=== PATIENT | male | born 1960 | race African-American/Black ===

== ENCOUNTER 2018-09-18 08:02 | Day surgery (SDC) | payer OTHER ==
[~2018-09-18 08:02] MED LIST: CARBACHOL 0.01% 1.5 ML OPH INJ; EPINEPHrine 1 MG INJ; TETRACAINE 0.5% 4 ML OPH; TOBRAMYCIN 0.3% 3.5 GM OPH OINT
[2018-09-18] MEDS: DICLOFENAC 0.1% 2.5 ML OPH OPER (09:22)
[2018-09-18] MEDS: TROPICAMIDE 1% 15 ML OPH OPER (09:24)
[2018-09-18] MEDS: PHENYLephrine 10% 5 ML OPH OPER (09:24)
[2018-09-18] MEDS: MOXIFLOXACIN 0.5% 3 ML OPH OPER (09:25)
[2018-09-18] MEDS ORDERED: ERYTHROMYCIN 1 GM OPH OINT OP (09:30)
[2018-09-18] MEDS: LIDOCAINE 4% (MPF) 5 ML INJ OPER (09:30)
[2018-09-18] MEDS ORDERED: CARBACHOL 0.01% 1.5 ML OPH INJ (10:23)
[2018-09-18] MEDS ORDERED: SODIUM HYALURONATE 14 MG/ML SYG (10:24)
[2018-09-18] MEDS ORDERED: TOBRAMYCIN 0.3% 3.5 GM OPH OINT (10:24)
[2018-09-18] MEDS ORDERED: EPINEPHrine 1 MG INJ (10:24)
[2018-09-18] MEDS ORDERED: FENTAnyl 50 MCG/ML VIAL ×2 (10:42→11:57)
[2018-09-18] MEDS ORDERED: MIDAZOLAM 1 MG/ML 2 ML INJ ×2 (10:42→11:57)
[2018-09-18] MEDS: LIDOCAINE 1.5%/EPI MPF (SDV) 30 ML VIAL INJ (10:50)
[2018-09-18] MEDS: TETRACAINE 0.5% 4 ML OPH OP (10:50)
[2018-09-18] MEDS ORDERED: HYDROmorphONE 2 MG/ML SYG (10:56)
[2018-09-18] MEDS ORDERED: FENTAnyl 50 MCG/ML VIAL IV (11:00)
[2018-09-18] MEDS ORDERED: DIPHENHYDRAMINE 50 MG INJ IV (11:00)
[2018-09-18] MEDS ORDERED: PROCHLORPERAZINE 10 MG INJ IV (11:00)
[2018-09-18] MEDS ORDERED: MEPERIDINE 25 MG INJ IV (11:00)
[2018-09-18] MEDS ORDERED: hydrALAzine 20 MG INJ IV (11:00)
[2018-09-18] MEDS ORDERED: HYDROmorphONE 1 MG/5 ML IV SYRINGE IV ×3 (11:00)
[2018-09-18] MEDS ORDERED: OXYCODONE/ACETAMINOPHEN (5/325) TAB PO (11:00)
[2018-09-18] MEDS ORDERED: LABETALOL HCL 20MG INJ IV (11:00)
[2018-09-18] MEDS: SODIUM HYALURONATE 14 MG/ML SYG IO (11:01)
[2018-09-18] MEDS: TOBRAMYCIN/DEXAMETH 3.5 GM OPH OINT RIGHT EYE (11:30)
[2018-09-18] MEDS: CARBACHOL 0.01% 1.5 ML OPH INJ RIGHT EYE (11:30)
[2018-09-18] MEDS: DEXAMETHASONE 4 MG/ML 1 ML INJ (11:33)
[2018-09-18] MEDS ORDERED: hydrALAzine 20 MG INJ (11:38)
[2018-09-18] MEDS: ACETAZOLAMIDE 250 MG TAB PO (11:51)
[2018-09-18] MEDS: ONDANSETRON 4 MG INJ IV (11:51)
== END 2018-09-18 13:10 | disposition home or self-care (01) ==
LOC: SDS 08:02
DX: H26.9 Unspecified cataract (principal); I10 Essential (primary) hypertension; Z85.46 Personal history of malignant neoplasm of prostate; M19.90 Unspecified osteoarthritis, unspecified site
CPT/HCPCS: 66984

== ENCOUNTER 2018-10-02 08:36 | Day surgery (SDC) | payer OTHER ==
[~2018-10-02 08:36] MED LIST changes: -CARBACHOL 0.01% 1.5 ML OPH INJ; -EPINEPHrine 1 MG INJ; -TETRACAINE 0.5% 4 ML OPH; +TETRACAINE 0.5% 4 ML OPH OPER; -TOBRAMYCIN 0.3% 3.5 GM OPH OINT
[2018-10-02] MEDS ORDERED: NA HYALURONATE/CHONDROITIN 0.5 ML SYG (09:14)
[2018-10-02] MEDS ORDERED: LIDOCAINE 1.5%/EPI MPF (SDV) 30 ML VIAL (09:14)
[2018-10-02] MEDS ORDERED: CARBACHOL 0.01% 1.5 ML OPH INJ (09:14)
[2018-10-02] MEDS ORDERED: EPINEPHrine 1 MG INJ (09:14)
[2018-10-02] MEDS: LIDOCAINE 4% (MPF) 5 ML INJ OPER (10:08)
[2018-10-02] MEDS: TROPICAMIDE 1% 15 ML OPH OPER (10:09)
[2018-10-02] MEDS: DICLOFENAC 0.1% 2.5 ML OPH OPER (10:09)
[2018-10-02] MEDS: PHENYLephrine 10% 5 ML OPH OPER (10:09)
[2018-10-02] MEDS: MOXIFLOXACIN 0.5% 3 ML OPH OPER (10:09)
[2018-10-02] MEDS: LIDOCAINE 1%/EPI 30 ML INJ INJ (11:00)
[2018-10-02] MEDS ORDERED: FENTAnyl 50 MCG/ML VIAL ×2 (11:41→12:04)
[2018-10-02] MEDS ORDERED: MIDAZOLAM 1 MG/ML 2 ML INJ (11:41)
[2018-10-02] MEDS: CARBACHOL 0.01% 1.5 ML OPH INJ LEFT EYE (12:15)
[2018-10-02] MEDS: TOBRAMYCIN 0.3% 3.5 GM OPH OINT LEFT EYE (12:17)
[2018-10-02] MEDS ORDERED: OXYCODONE/ACETAMINOPHEN (5/325) TAB PO ×2 (12:30)
[2018-10-02] MEDS ORDERED: ONDANSETRON 4 MG INJ IV (12:30)
[2018-10-02] MEDS ORDERED: ALBUTEROL 0.083% (NEB) 2.5 MG/3 ML AMP HHN (12:30)
[2018-10-02] MEDS ORDERED: FENTAnyl 50 MCG/ML VIAL IV ×3 (12:30)
[2018-10-02] MEDS ORDERED: hydrALAzine 20 MG INJ IV (12:30)
[2018-10-02] MEDS: ACETAZOLAMIDE 250 MG TAB PO (12:46)
[2018-10-02] MEDS: LACTATED RINGER'S 1,000 ML IV (12:46)
== END 2018-10-02 14:00 | disposition home or self-care (01) ==
LOC: SDS 08:36
DX: H26.8 Other specified cataract (principal)
CPT/HCPCS: 66984; 71045